=== PATIENT | female | born 1980 | race Hispanic/Latino ===

== ENCOUNTER 2018-12-10 12:18 | Emergency (ER) | payer OTHER ==
[2018-12-10] MEDS ORDERED: LIDOCAINE HCL-MPF 1% 2ML VIAL ONE (13:01)
[2018-12-10] MEDS ORDERED: CEFTRIAXONE SODIUM 1 GM ONE (13:01)
== END 2018-12-10 14:08 | disposition home or self-care (01) ==
LOC: EDH 12:18
DX: J03.90 Acute tonsillitis, unspecified (principal); L04.9 Acute lymphadenitis, unspecified; E11.9 Type 2 diabetes mellitus without complications
CPT/HCPCS: 87880; 96372; 99283; J0696; J3490

== ENCOUNTER 2023-10-15 09:48 | Emergency (ER) | payer SELFPAY ==
[~2023-10-15] VITALS: Ht 167.6 cm; Wt 89.8 kg
[2023-10-15 10:07] VITALS: BP 113/65; PULSE 100; RESP 18; O2SAT 98
[2023-10-15 10:27] LABS: BASOPHILS # (AUTO) 0.06 K/uL (0.00-0.20); BASOPHILS % (AUTO) 0.9 % (0.0-5.0); EOSINOPHILS # (AUTO) 0.16 K/uL (0.00-0.70); EOSINOPHILS % (AUTO) 2.3 % (0.0-8.0); HEMATOCRIT 35.1 % (36-48); IMMATURE GRANULOCYTE ABSOLUTE 0.03 K/uL (0-1); LYMPHOCYTES # (AUTO) 1.5 K/uL (1.0-4.8); LYMPHOCYTES % (AUTO) 20.7 % (21.0-51.0); MEAN CORPUSCULAR HEMOGLOBIN 28.8 pg (27.0-33.0); MEAN CORPUSCULAR HGB CONC 34.2 g/dL (32.0-36.0); MEAN CORPUSCULAR VOLUME 84.4 fL (79-99); MONOCYTES # (AUTO) 0.7 K/uL (0.1-1.0); MONOCYTES % (AUTO) 9.2 % (3.0-13.0); NEUTROPHILS # (AUTO) 4.7 K/uL (1.8-7.7); NEUTROPHILS % (AUTO) 66.5 % (40.0-77.0); PLATELET COUNT (AUTO) 267 K/uL (130-400); RED BLOOD CELL COUNT(AUTO) 4.16 MIL/uL (4.00-5.50); RED CELL DISTRIBUTION WIDTH 13.6 % (11.0-15.5)
[2023-10-15 10:37] LABS: CREATININE 0.7 mg/dL (0.5-1.5); POTASSIUM 3.9 mmol/L (3.5-5.1)
[2023-10-15 10:38] LABS: INR <= 0.93 (0.85-1.15); PROTHROMBIN TIME 9.8 SEC (9.6-11.6)
[2023-10-15 10:39] LABS: PARTIAL THROMBOPLASTIN TIME 25.1 SEC (26.3-35.5)
[2023-10-15 10:42] LABS: BILIRUBIN,TOTAL 0.3 mg/dL (0.2-1.0); TOTAL PROTEIN, SERUM 7.3 g/dL (6.0-8.3)
[2023-10-15] MEDS: 0.9%NACL 1000ML 1,000 ML IV ONE (11:03)
[2023-10-15] MEDS ORDERED: GABA-534 PO (11:41)
== END 2023-10-15 12:03 | disposition home or self-care (01) ==
LOC: EDH 09:48
DX: E11.40 Type 2 diabetes mellitus with diabetic neuropathy, unspecified (principal); E11.65 Type 2 diabetes mellitus with hyperglycemia; E87.1 Hypo-osmolality and hyponatremia; M79.89 Other specified soft tissue disorders; M79.604 Pain in right leg
CPT/HCPCS: 99284; 96360; 93971; 80053; 85025; 85610; 85730; 36415; J7030

== ENCOUNTER 2025-02-17 14:15 | Emergency (ER) | payer BC ==
[~2025-02-17] VITALS: Ht 162.6 cm; Wt 93.4 kg
[~2025-02-17 14:15] MED LIST: ACAR50TA5 PO; ATOR40TA69 PO; DAPA10TA PO; GABA-534 PO; INSLAN SQ; METF-446 PO
--- NOTE | 2025-02-17 14:24 | ERN ---
ED Note History of Present Illness Stated Complaint: BRUISED RIGHT 5TH FINGER WITH PAIN Chief Complaint: Finger Injury Time Seen by MD: 14:19 Dictation: PATIENT IS A 44-YEAR-OLD DIABETIC FEMALE HERE WITH COMPLAINTS OF A SELF- INFLICTED NEEDLE STICK FROM HER GLUCOSE MONITOR YESTERDAY. SHE ACCIDENTALLY POKED HERSELF ON HER DISTAL RIGHT 5TH FINGER NOW HAS SOME MILD SWELLING AND BRUISING. NO FEVER NO CHILLS NO NAUSEA VOMITING NEUROVASCULAR CMS INTACT TO FINGER. SHE DID NOT CHECK HER BLOOD SUGAR THIS MORNING. NOR DOES SHE TAKE ANYTHING PRIOR TO ARRIVAL FOR PAIN. Allergies: Coded Allergies: No Known Drug Allergies (Unverified Allergy, Unknown, 10/15/23) Home Meds Active Scripts Atorvastatin Calcium (LIPITOR) 80 Mg Tablet, 1 TAB PO HS for 30 Days, #30 TAB 0 Refills Prov:JESÚS BRENNAN NECKTIES PAINTER 09/18/24 Reported Medications Gabapentin (Gabapentin) 400 Mg Capsule, 1 CAP PO TID PRN for PAIN for 30 Days, #90 CAP 0 Refills 09/13/24 Dapagliflozin Propanediol (Farxiga) 10 Mg Tablet, 1 TAB PO DAILY for 30 Days, #30 TAB 0 Refills 09/13/24 Acarbose (Acarbose) 50 Mg Tablet, 50 MG PO DAILY, TAB 09/13/24 Metformin HCl (Metformin HCl) 1,000 Mg Tablet, 1 TAB PO BID for 30 Days, #60 TAB 0 Refills 09/13/24 Insulin Glargine,Hum.rec.anlog (Lantus) 100 Unit/Ml Inj, 50 UNITS SQ BID, ML 09/13/24 Past Medical History Past Medical History: Diabetes-Type II Surgical History: None History: Not Applicable RN Note Reviewed/Agreed w/PFSH: Yes Review of System Dictation CONSTITUTIONAL: NEGATIVE EXCEPT FOR HPI HEAD/FACE: NEGATIVE EXCEPT FOR HPI EENT: NEGATIVE EXCEPT FOR HPI RESPIRATORY: NEGATIVE EXCEPT FOR HPI GASTROINTESTINAL/ABDOMINAL: NEGATIVE EXCEPT FOR HPI GENITOURINARY: NEGATIVE EXCEPT FOR HPI MUSCULOSKELETAL: NEGATIVE EXCEPT FOR HPI INTEGUMENTARY: NEGATIVE EXCEPT FOR HPI NEEDLE STICK INJURY WITH SWELLING TO DISTAL PALMAR RIGHT 5TH FINGER NEUROLOGICAL/PSYCH: NEGATIVE EXCEPT FOR HPI HEMATOLOGIC/LYMPHATIC: NEGATIVE EXCEPT FOR HPI ALL SYSTEMS NEGATIVE, EXCEPT NOTED ABOVE. 13 POINT REVIEW OF SYSTEMS ASSESSED AND ALL NEGATIVE EXCEPT FOR ABOVE. Initial Vital Sign VS Vital Signs Date Time Temp Pulse Resp B/P (MAP) Pulse Ox O2 Delivery O2 Flow Rate FiO2 02/17/25 14:17 98.1 97 16 118/61 97 Room Air Physical Exam Dictation VITAL SIGNS REVIEWED GENERAL APPEARANCE: ALERT, ORIENTED X 3, MILD ACUTE DISTRESS, WELL DEVELOPED, NOURISHED. HEAD AND FACE: NON-TRAUMATIC. EYES: PERRL, PINK CONJUNCTIVAS, EYELID NO TRAUMA, ANTERIOR CHAMBER WITH ARCUS SENILIS. EARS: PINNAS INTACT AND NO SIGNS OF TRAUMA OR ERYTHEMA EAR CANALS CLEAR AND NO DISCHARGE TM NO ERYTHEMA NOSE: NO DISCHARGE, NO BLEEDING. OROPHARYNX: MOUTH NORMAL, TONGUE PINK, PHARYNX CLEAR,NO ERYTHEMA, TONSILS NO EXUDATES, NO ABSCESSES NOTED, MUCOUS MEMBRANE MOIST NECK: SUPPLE, NON-TENDER, NO THYROMEGALY, NO MASSES, NO JVD, NO BRUITS BREAST:DEFERRED CHEST:NO TENDERNESS, NO CREPITUS, NO PARADOXICAL MOVEMENT, NO RETRACTIONS LUNGS:CLEAR, WELL-VENTILATED, SYMMETRIC, NO RALES, NO WHEEZING, NO RHONCHI, NO STRIDOR, GOOD BREATH SOUNDS BILATERALLY HEART: REGULAR RATE, REGULAR RHYTHM, NO MURMUR, NO GALLOPS VASCULAR: NO PERIPHERAL EDEMA, ABDOMEN: SOFT, POSITIVE BOWEL SOUNDS, NONDISTENDED, NO GUARDING, NONTENDER, NO REBOUND, NO MASSES NO HEPATOMEGALY, NO SPLENOMEGALY, NO KUNZ'S SIGN, NO HERNIAS. RECTAL: DEFERRED GENITAL: DEFERRED NEUROLOGICAL: NORMAL SPEECH, MOTOR FUNCTION INTACT, SENSORY FUNCTION INTACT MUSCULOSKELETAL: NECK NONTENDER, FULL RANGE OF MOTION, BACK NONTENDER, FULL RANGE OF MOTION, EXTREMITIES: MILD SWELLING AND ECCHYMOSIS TO DISTAL PHALANX RIGHT 5TH FINGER NAIL IS INTACT NO ERYTHEMA SKIN: COLOR PINK, DRY, NO TURGOR, NO RASH, NO LACERATIONS, NO ABRASIONS, NO CONTUSIONS. LYMPHATIC: DEFERRED Results (Laboratory/Radiology) Laboratory/Radiology Laboratory Tests Test 02/17/25 14:56 White Blood Count 8.7 K/uL (4.8-10.8) Red Blood Count 4.32 MIL/uL (4.00-5.50) Hemoglobin 11.5 g/dL (12.0-16.0) L Hematocrit 35.1 % (36-48) L Mean Corpuscular Volume 81.3 fL (79-99) Mean Corpuscular Hemoglobin 26.6 pg (27.0-33.0) L Mean Corpuscular Hemoglobin Concent 32.8 g/dL (32.0-36.0) Red Cell Distribution Width 15.4 % (11.0-15.5) Platelet Count 293 K/uL (130-400) Mean Platelet Volume 10.5 fL (7.5-10.5) Immature Granulocyte % (Auto) 0.3 % (0-1) Neutrophils (%) (Auto) 63.7 % (40.0-77.0) Lymphocytes (%) (Auto) 24.4 % (21.0-51.0) Monocytes (%) (Auto) 8.8 % (3.0-13.0) Eosinophils (%) (Auto) 2.2 % (0.0-8.0) Basophils (%) (Auto) 0.6 % (0.0-5.0) Neutrophils # (Auto) 5.6 K/uL (1.8-7.7) Lymphocytes # (Auto) 2.1 K/uL (1.0-4.8) Monocytes # (Auto) 0.8 K/uL (0.1-1.0) Eosinophils # (Auto) 0.19 K/uL (0.00-0.70) Basophils # (Auto) 0.05 K/uL (0.00-0.20) Absolute Immature Granulocyte (auto 0.03 K/uL (0-1) Nucleated Red Blood Cells 0.0 % (0.0-0.19) Sodium Level 136 mmol/L (136-145) Potassium Level 3.6 mmol/L (3.5-5.1) Chloride Level 101 mmol/L (101-111) Carbon Dioxide Level 25 mmol/L (21-32) Blood Urea Nitrogen 15 mg/dL (7-18) Creatinine 0.8 mg/dL (0.5-1.0) Glomerular Filtration Rate Calc 93 mL/min (>90) Random Glucose 276 mg/dL (70-105) H Total Calcium 9.0 mg/dL (8.5-10.1) Labs Reviewed?: Yes ED Course ED Course Orders Procedure Category Date Status Time Cbc With Differential LAB 02/17/25 Complete 14:21 Basic Metabolic Panel LAB 02/17/25 Complete 14:21 Acetaminophen 500mg PHA 02/17/25 Complete Tab (Tylenol 500mg T 14:30 Cephalexin 500 Mg PHA 02/17/25 Complete Capsule (Keflex 500 Mg 14:30 Current Medications Medications (Trade) Dose Ordered Sig/Christine Route PRN Reason Start Time Stop Time Status Last Admin Dose Admin Acetaminophen (TYLenol 500MG TAB) 1,000 mg ONCE ONCE PO 02/17/25 14:30 02/17/25 14:31 DC 02/17/25 14:34 Cephalexin (Keflex 500 MG CAPS) 1,000 mg ONCE ONCE PO 02/17/25 14:30 02/17/25 14:31 DC 02/17/25 14:35 Vital Signs Date Time Temp Pulse Resp B/P (MAP) Pulse Ox O2 Delivery O2 Flow Rate FiO2 02/17/25 14:17 98.1 97 16 118/61 97 Room Air 1630/PATIENT DISCHARGED HOME WITH A UNCONTROLLED DIABETES WE WILL BE PLACED ON CEPHALEXIN TOLD TO SEE HER PRIMARY CARE DOCTOR Medical Decision Making MDM MEDICAL DISCHARGE MAKING BASED ON BASIC LABS AND PROPHYLACTIC TREATMENT FOR A NEEDLE STICK INJURY ON A DIABETIC PATIENT. NO LEUKOCYTOSIS, BLOOD SUGAR 276 PATIENT STATES SHE IS COMPLIANT WITH HER MEDS. DISCHARGED HOME WITH CEPHALEXIN AND TOLD TO SEE HER PRIMARY CARE DOCTOR FOR FOLLOW UP AND MANAGEMENT DX & DISP Disposition: Discharge Departure Impression: Primary Impression: Needle stick injury of finger of right hand Additional Impression: Uncontrolled diabetes mellitus Condition: Stable Scripts Cephalexin (Cephalexin) 500 Mg Tablet 1 TAB PO QID for 10 Days, #40 TAB 0 Refills Prov: LAURA MCKAY RUSSIAN HISTORY PROFESSOR 02/17/25 Additional Instructions: FOLLOW-UP WITH PRIMARY CARE PROVIDER IN 1 TO 2 DAYS. TAKE MEDICATIONS DIRECTED HERE IN THE EMERGENCY ROOM. OKAY TO CONTINUE HOME MEDICATIONS UNLESS OTHERWISE DISCUSSED DURING YOUR VISIT IN THE EMERGENCY ROOM TODAY. RETURN TO YOUR NEAREST EMERGENCY ROOM IF SYMPTOMS WORSEN OR IF THERE IS NO IMPROVEMENT. CALL 911 IF YOU NEED IMMEDIATE ASSISTANCE. TAKE TYLENOL OR MOTRIN [id number]-[id number] NEEDED AND IF NO CONTRAINDICATIONS ARE PRESENT. INCREASE ORAL HYDRATION. A WOUND CULTURE OR URINE CULTURE WAS ORDERED HERE IN THE EMERGENCY ROOM DEPARTMENT PLEASE FOLLOW-UP WITH PRIMARY CARE PROVIDER AND ADVISE THEM TO GET REPEAT PORTS FROM OUR FACILITY. IF YOU HAD ANY RANDY WRAP/SPLINTS THAT WERE APPLIED HERE, PLEASE DO NOT REMOVE THEM UNTIL YOU SEE YOUR PRIMARY CARE OR SPECIALTY. TAKE ANTIBIOTICS DIRECTED UNTIL GONE. FOLLOW UP WITH YOUR PRIMARY CARE DOCTOR IN THE NEXT 1-2 DAYS. Referrals: AKOSUA JOHNSON (PCP) Time of Disposition: 16:32 I have reviewed the case, and I agree with, Diagnosis and Plan LAURA MCKAY RUSSIAN HISTORY PROFESSOR Feb 17, 2025 14:24
[2025-02-17 15:04] LABS: IMMATURE GRANULOCYTE ABSOLUTE 0.03 K/uL (0-1); NUCLEATED RED BLOOD CELLS 0.0 % (0.0-0.19); PLATELET COUNT (AUTO) 293 K/uL (130-400); RED BLOOD CELL COUNT(AUTO) 4.32 MIL/uL (4.00-5.50); RED CELL DISTRIBUTION WIDTH 15.4 % (11.0-15.5); WHITE BLOOD COUNT (AUTO) 8.7 K/uL (4.8-10.8)
[2025-02-17 15:10] LABS: CREATININE 0.8 mg/dL (0.5-1.0); GLOMERULAR FILTR. RATE CALC 93.0 mL/min (>90); GLUCOSE,RANDOM 276.0 mg/dL (70-105); SODIUM SERUM 136.0 mmol/L (136-145); UREA NITROGEN, BLOOD 15.0 mg/dL (7-18)
[2025-02-17] MEDS ORDERED: CEPH500T PO (16:32)
[2025-02-17 17:01] VITALS: BP 116/64; PULSE 89; RESP 17; TEMP 97.6; O2SAT 99
== END 2025-02-17 17:02 | disposition home or self-care (01) ==
LOC: EDH 14:15
DX: S61.236A Puncture wound without foreign body of right little finger without damage to nail, initial encounter (principal); E11.65 Type 2 diabetes mellitus with hyperglycemia; Z77.21 Contact with and (suspected) exposure to potentially hazardous body fluids; Z79.4 Long term (current) use of insulin; Z79.84 Long term (current) use of oral hypoglycemic drugs; W46.0XXA Contact with hypodermic needle, initial encounter; Y93.89 Activity, other specified; Y92.89 Other specified places as the place of occurrence of the external cause; Y99.8 Other external cause status
CPT/HCPCS: 36415; 80048; 85025; 99283

== ENCOUNTER 2025-05-11 13:44 | Emergency (ER) | payer BC ==
[~2025-05-11] VITALS: Ht 162.6 cm; Wt 91.2 kg
[~2025-05-11 13:44] MED LIST changes: +CEPH500T PO
--- NOTE | 2025-05-11 13:50 | ERN ---
General Chief Complaint: Chest Wall Pain Stated Complaint: CHEST WALL PAIN Time Seen by MD: 13:46 Source: patient, family History of Present Illness Initial Comments This is a 44-year-old female coming in complaining of chest wall pain. Per patient she has been having right-sided chest pain for two days. 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 Allergies: Coded Allergies: No Known Drug Allergies (Unverified Allergy, Unknown, 10/15/23) Home Meds Active Scripts Cephalexin (Cephalexin) 500 Mg Tablet, 1 TAB PO QID for 10 Days, #40 TAB 0 Refills Prov:LAURA MCKAY AIR AND WATER TESTER 02/17/25 Atorvastatin Calcium (LIPITOR) 80 Mg Tablet, 1 TAB PO HS for 30 Days, #30 TAB 0 Refills Prov:JESÚS BRENNAN AIR AND WATER TESTER 09/18/24 Reported Medications Gabapentin (Gabapentin) 400 Mg Capsule, 1 CAP PO TID PRN for PAIN for 30 Days, #90 CAP 0 Refills 09/13/24 Dapagliflozin Propanediol (Farxiga) 10 Mg Tablet, 1 TAB PO DAILY for 30 Days, #30 TAB 0 Refills 09/13/24 Acarbose (Acarbose) 50 Mg Tablet, 50 MG PO DAILY, TAB 09/13/24 Metformin HCl (Metformin HCl) 1,000 Mg Tablet, 1 TAB PO BID for 30 Days, #60 TAB 0 Refills 09/13/24 Insulin Glargine,Hum.rec.anlog (Lantus) 100 Unit/Ml Inj, 50 UNITS SQ BID, ML 09/13/24 Past Medical History Past Medical History: Diabetes-Type II Past Surgical History: None Female( History) History: Not Applicable ROS Dictation CONSTITUTIONAL: No chills, no fever, no weakness, no diaphoresis, no malaise. HEAD/FACE: No signs of trauma. EENT: No eye pain, no blurred vision, no tearing, no double vision, no ear pain, no ear discharge, no nose pain, no nasal congestion, no throat pain, no throat swelling, no mouth pain. RESPIRATORY: No cough, no orthopnea, no SOB, no stridor, no wheezing. CARDIOVASCULAR: chest pain, no edema, no palpitations, no syncope. GASTROINTESTINAL/ABDOMINAL: No abdominal pain, no constipation, no diarrhea, no nausea, no vomiting. GENITOURINARY: No abnormal discharge, no dysuria, no frequent urination, no hematuria. No complaints of pain in the genitals. MUSCULOSKELETAL: No back pain, no gout, no joint pain, no joint swelling, no muscle pain, no muscle stiffness, no neck pain. INTEGUMENTARY: No change in color, no change in hair/nails, no dryness, no lesion, no lumps, no rash. NEUROLOGICAL/PSYCH: No anxiety, not depressed, no emotional problem, no headache, no numbness, no pre-existing deficit, no history of seizures, no tremors, no weakness. HEMATOLOGIC/LYMPHATIC: Not anemic, no history of blood clots, no apparent bleeding, no bruising, glands not swollen. All Systems Negative, Except as Noted. Physical Exam Physical Exam Dictation VITAL SIGNS: Reviewed. GENERAL APPEARANCE: Alert, oriented x3, no acute distress, obese. HEAD AND FACE: Non-traumatic. EYES: PERRL, pink conjunctivas, eyelid no trauma, anterior chamber clear. EARS: Pinnas intact and no signs of trauma or erythema. Ear canals clear and no discharge. TMs no erythema. NOSE: No discharge, no bleeding. OROPHARYNX: Mouth normal, teeth no caries, tongue pink. Pharynx clear, no erythema. Tonsils no exudates, no abscesses noted. Mucous membrane moist. NECK: Supple, non-tender, no thyromegaly, no masses, no JVD, no bruits. BREAST: Deferred. CHEST: tenderness, no crepitus, no paradoxical movement, no retractions. LUNGS: Clear, well-ventilated, symmetric, no rales, no wheezing, no rhonchi, no stridor, good breath sounds bilaterally. HEART: Regular rate, regular rhythm, no murmur, no gallops. VASCULAR: No peripheral edema. ABDOMEN: Soft, positive bowel sounds, nondistended, no guarding, nontender, no rebound, no masses no hepatomegaly, no splenomegaly, no Wang's sign, no hernias. RECTAL: Deferred. GENITAL: Deferred. NEUROLOGICAL: Normal speech, gross motor function intact, gross sensory function intact. MUSCULOSKELETAL: Neck nontender, full range of motion, back nontender, full range of motion. EXTREMITIES: Nontender, full range of motion. SKIN: Color pink, dry, no turgor, no rash, no lacerations, no abrasions, no contusions. LYMPHATICS: Deferred. Results Laboratory and Microbiology Lab and Micro Result Laboratory Tests Test 05/11/25 14:07 05/11/25 14:23 05/11/25 14:57 05/11/25 15:11 White Blood Count 9.9 K/uL (4.8-10.8) Red Blood Count 4.41 MIL/uL (4.00-5.50) Hemoglobin 12.4 g/dL (12.0-16.0) Hematocrit 37.3 % (36-48) Mean Corpuscular Volume 84.6 fL (79-99) Mean Corpuscular Hemoglobin 28.1 pg (27.0-33.0) Mean Corpuscular Hemoglobin Concent 33.2 g/dL (32.0-36.0) Red Cell Distribution Width 14.3 % (11.0-15.5) Platelet Count 285 K/uL (130-400) Mean Platelet Volume 10.1 fL (7.5-10.5) Immature Granulocyte % (Auto) 0.4 % (0-1) Neutrophils (%) (Auto) 71.1 % (40.0-77.0) Lymphocytes (%) (Auto) 18.4 % (21.0-51.0) L Monocytes (%) (Auto) 8.3 % (3.0-13.0) Eosinophils (%) (Auto) 1.3 % (0.0-8.0) Basophils (%) (Auto) 0.5 % (0.0-5.0) Neutrophils # (Auto) 7.1 K/uL (1.8-7.7) Lymphocytes # (Auto) 1.8 K/uL (1.0-4.8) Monocytes # (Auto) 0.8 K/uL (0.1-1.0) Eosinophils # (Auto) 0.13 K/uL (0.00-0.70) Basophils # (Auto) 0.05 K/uL (0.00-0.20) Absolute Immature Granulocyte (auto 0.04 K/uL (0-1) Nucleated Red Blood Cells 0.0 % (0.0-0.19) Sodium Level 131 mmol/L (136-145) L Potassium Level 4.6 mmol/L (3.5-5.1) Chloride Level 95 mmol/L (101-111) L Carbon Dioxide Level 25 mmol/L (21-32) Blood Urea Nitrogen 12 mg/dL (7-18) Creatinine 0.9 mg/dL (0.5-1.0) Glomerular Filtration Rate Calc 80 mL/min (>90) Random Glucose 482 mg/dL (70-105) *H Total Calcium 8.6 mg/dL (8.5-10.1) Troponin I High Sensitivity < 4 ng/L (4-50) L Urine Color COLORLESS (YELLOW) Urine Appearance CLEAR (CLEAR) Urine pH 5.5 (5.0-8.0) Urine Specific [place] 1.033 (1.001-1.031) Urine Protein 10 mg/dL (NEGATIVE) H Urine Glucose (UA) >=1000 mg/dL (NEGATIVE) H Urine Ketones NEGATIVE mg/dL (NEGATIVE) Urine Occult Blood NEGATIVE (NEGATIVE) Urine Nitrate NEGATIVE (NEGATIVE) Urine Bilirubin NEGATIVE mg/dL (NEGATIVE) Urine Urobilinogen 0.2 mg/dL (0.2-1.0) Urine Leukocyte Esterase NEGATIVE [place]/uL Urine RBC 2-5 /HPF (0-1) H Urine WBC 2-5 /HPF (0-1) H Urine Squamous Epithelial Cells FEW /HPF (0-2) Urine Bacteria RARE /HPF (None Seen) Urine HCG, Qualitative NEGATIVE (NEGATIVE) Blood Gas Specimen Type Arterial Arterial Blood pH 7.390 (7.350-7.450) Arterial Blood Partial Pressure CO2 37 mmHg (32-45) Arterial Blood Partial Pressure O2 95.7 mmHg (83.0-108.0) Arterial Blood HCO3 21.7 mmol/L (21.0-28.0) Arterial Blood Oxygen Saturation 97.1 % (94.0-98.0) Arterial Blood Base Excess -2.7 mmol/L (-2.0-3.0) L Hemoglobin (Blood Gas) 13.1 g/dL (12.0-16.0) Sodium (Blood Gas) 132 MMOL/L (136-145) L Bedside Potassium (Blood Gas) 4.3 MMOL/L (3.4-4.5) Bedside Chloride (Blood Gas) 97 MMOL/L (98-107) L Bedside Glucose (Blood Gas) 472 MG/DL (65-95) *H Bedside Ionized Calcium (Blood Gas) 1.19 MMOL/L (1.15-1.33) Bedside Lactic Acid (Blood Gas) 4.24 MMOL/L (0.36-0.75) *H Blood Gas Temperature 37.0 CELSIUS (35.5-37.0) Blood Gas Vent Mode RA (ROOM AIR) FiO2 21.0 % Blood Gas Specimen Comment LR, Whole Blood Ketones Quantitative 0.1 mmol/L (0.0-0.6) Test 05/11/25 15:23 05/11/25 16:21 Whole Blood Glucose 401 MG/DL (70-110) *H 321 MG/DL (70-110) H Bedside Glucose Comment Notified Nurse Labs Reviewed?: Yes EKG/XRAY/US/CT/MRI EKG Comment 05/11/2025 time 2:06 p.m. Ventricular rate 95 Sinus rhythm [place] [address] wave elevation or depression X-RAY Comment [address] [address] IMAGING REPORT Signed PATIENT: OLIVIA CHI MR#: [id number] : 1980 SEX: F AGE: 44 LOCATION: [facility] ORDER 57 STATUS: [facility] REPORT#: [id number] SERVICE 56 REASON: ORDERING PHYSICIAN: TAM KUMAR MD PROCEDURE: CXR1VW - CHEST 1VW EXAM: CR Chest, 1 View. CLINICAL HISTORY: COMPARISON: September 15 2024 FINDINGS: LUNGS: The lungs show no infiltrate or other acute finding. PLEURAL SPACES: No evidence of pleural effusion or pneumothorax. MEDIASTINUM: The cardiomediastinal silhouette is within normal limits. BONES: No aggressive appearing osseous lesion seen. IMPRESSION: No acute cardiopulmonary pathology is evident. /[place] DICTATED BY: ASYA MORENO MD DATE: 05/11/251702 ELECTRONICALLY SIGNED BY: ASYA MORENO MD DATE: 05/11/251702 MDM MDM: Differential diagnosis: chest pain, muscle strain, costochondritis, Rationale: Tests considered and ordered secondary to shared decision making include: Previous outside records reviewed: Old ER visits. Risk of complication and/or morbidity or mortality of patient management: None Medications-Per medication reconciliation Need for hospitalization: Patient does not meet criteria for hospitalization. Need for emergency major/minor surgery: No Patient is a 44-year-old female coming in to be evaluated for right-sided chest pain. On physical exam that has tenderness to palpation laboratory workup which included cardiac workup was negative for any elevated troponins. Glucose was elevated was hydrated with IV fluids given IV insulin times 10 units and glucose improved significantly. Patient was educated on proper management of diabetes mellitus. Also advise her rest on physical activity to help alleviate her right-sided shoulder discomfort. Patient will be discharged in stable condition. ED Course Orders Procedure Category Date Status Time Cbc With Differential LAB 05/11/25 Complete 13:57 Chest 1vw RAD 05/11/25 Resulted 13:57 12 Lead Ekg Tracing- EKG 05/11/25 Logged Technical 13:57 ,Urine Test LAB 05/11/25 Complete 13:57 Troponin I High LAB 05/11/25 Complete Sensitivity 13:57 Urinalysis Profile LAB 05/11/25 Complete 13:57 Basic Metabolic Panel LAB 05/11/25 Complete 13:57 0.9%Nacl 1000ml (Ns PHA 05/11/25 Complete 1000ml) 15:00 Arterial Blood Gas + RT 05/11/25 Transmitted 14:33 Insulin Regular, PHA 05/11/25 Complete Human 3ml (Humulin R 15:00 Ketone Blood LAB 05/11/25 Complete Quantitative 14:51 Arterial Blood Gas LAB 05/11/25 Complete Arterial + 14:57 Insulin Regular, PHA 05/11/25 Complete Human 3ml (Humulin R 16:00 Bedside Glucose CPOE 05/11/25 Transmitted Fingerstick 16:43 Current Medications Medications (Trade) Dose Ordered Sig/Christine Route PRN Reason Start Time Stop Time Status Last Admin Dose Admin Insulin Human Regular (humuLIN R 100 UNIT/ML 3ML) 5 unit ONCE ONCE IV 05/11/25 15:00 05/11/25 15:01 DC 05/11/25 15:28 Insulin Human Regular (humuLIN R 100 UNIT/ML 3ML) 5 unit ONCE ONCE IV 05/11/25 16:00 10/7/25 16:01 DC 05/11/25 16:40 Sodium Chloride 1,000 ml @ 0 mls/hr ONCE ONCE IV 05/11/25 15:00 05/11/25 15:01 DC Vital Signs Date Time Temp Pulse Resp B/P (MAP) Pulse Ox O2 Delivery O2 Flow Rate FiO2 05/11/25 15:41 99 20 121/66 96 Room Air* 0 21 05/11/25 14:13 98.6 99 20 120/64 97 Room Air* 0 21 05/11/25 13:46 98.6 99 20 120/64 97 Room Air 0 DX & DISP Disposition: Discharge Departure Impression: Primary Impression: Uncontrolled diabetes mellitus Additional Impressions: Right-sided chest wall pain, Muscle strain Condition: Stable Additional Instructions: You have been reviewed in the emergency department at [facility] after presenting with chest pain. After considering your history, your risk factors, your EKG and your blood test troponins, have been found to be at very low risk less than (1 in 100) of having a major adverse cardiac event (like heart attack) in the near future. In the " low risk" group, the risks of doing further tests and treatment as the inpatient outweighs the benefits. In many p atients in the low risk group for the test of any sort or unnecessary, however he should discuss this further with his general practitioner who will understand the medical and personal backgrounds better. Because we have never declared you" no risk" we would suggest. 1 returning for medical review if you have further episodes of chest pain/arm pain or other concerning symptoms like dizziness, collapse, palpitations or shortness of breath. 2. Following up with your local doctor who will consider the need for further testing and will also ensure that any modifiable risk factors you may have for heart disease are optimally managed. Patient will be discharged in stable condition at the moment discharge patient states , no chest pain Referrals: AKOSUA JOHNSON (PCP) Time of Disposition: 17:01 TAM KUMAR MD May 11, 2025 13:50
[2025-05-11 14:16] LABS: IMMATURE GRANULOCYTE ABSOLUTE 0.04 K/uL (0-1); NUCLEATED RED BLOOD CELLS 0.0 % (0.0-0.19); PLATELET COUNT (AUTO) 285 K/uL (130-400); RED BLOOD CELL COUNT(AUTO) 4.41 MIL/uL (4.00-5.50); RED CELL DISTRIBUTION WIDTH 14.3 % (11.0-15.5); WHITE BLOOD COUNT (AUTO) 9.9 K/uL (4.8-10.8)
[2025-05-11 14:27] LABS: CREATININE 0.9 mg/dL (0.5-1.0); GLOMERULAR FILTR. RATE CALC 80.0 mL/min (>90); SODIUM SERUM 131.0 mmol/L (136-145); UREA NITROGEN, BLOOD 12.0 mg/dL (7-18)
[2025-05-11 14:30] LABS: GLUCOSE,RANDOM 482.0 mg/dL (70-105)
[2025-05-11 14:54] LABS: HCG,QUALITATIVE URINE NEGATIVE (NEGATIVE)
[2025-05-11 14:58] LABS: ABG BASE EXCESS -2.7 mmol/L (-2.0-3.0); ABG HCO3 21.7 mmol/L (21.0-28.0); ABG OXYGEN SATURATION 97.1 % (94.0-98.0); ABG PCO2 37 mmHg (32-45); ABG PH 7.390 (7.350-7.450); CARBON MONOXIDE 0.9 % (0.5-1.5); PO2, ARTERIAL BG 95.7 mmHg (83.0-108.0); TEMPERATURE, CELSIUS BG 37.0 CELSIUS (35.5-37.0); VENT MODE, BG RA (ROOM AIR)
[2025-05-11] MEDS: 0.9%NACL 1000ML 1,000 ML IV ONE (15:00)
[2025-05-11 15:01] LABS: APPEARANCE,URINE CLEAR (CLEAR); GLUCOSE, URINE (UA) >=1000 mg/dL (NEGATIVE); LEUKOCYTE ESTERASE ,URINE NEGATIVE Leu/uL (NEGATIVE); NITRATE,URINE NEGATIVE (NEGATIVE); OCCULT BLOOD,URINE NEGATIVE (NEGATIVE)
[2025-05-11 15:02] LABS: ADD UA MICROSCOPIC YES
[2025-05-11 15:03] LABS: SQUAMOUS EPITHELIAL CELL,UR FEW /HPF (0-2)
--- NOTE | 2025-05-11 16:04 | HMCIMG ---
EXAM: CR Chest, 1 View. CLINICAL HISTORY: cp COMPARISON: September 15 2024 FINDINGS: LUNGS: The lungs show no infiltrate or other acute finding. PLEURAL SPACES: No evidence of pleural effusion or pneumothorax. MEDIASTINUM: The cardiomediastinal silhouette is within normal limits. BONES: No aggressive appearing osseous lesion seen. IMPRESSION: No acute cardiopulmonary pathology is evident. /[place]
[2025-05-11] MEDS: ORPHENADRINE 60MG/2ML IM ONE (17:12)
--- NOTE | 2025-05-11 17:16 | EKG ---
[facility] Test Date: 2025-05-11 Test Time: 14:06:29 Pat Name: OLIVIA CHI Department: [facility] Room: Gender: F Occupational Rehabilitation Aide: 9920 : 1980 Requested By: TAM KUMAR Order Number: [id number] Reading MD: Olu De Leon Measurements Intervals Cornelius Rate: 95 P: 25 CT: 143 QRS: -1 QRSD: 85 T: 9 QT: 370 QTc: 465 Interpretive Statements Sinus rhythm No previous ECG available for comparison Electronically Signed On 05-13-2025 06:51:37 CDT by Olu De Leon Please click the below link to view image of tracing.
[2025-05-11 17:33] VITALS: BP 105/64; PULSE 90; RESP 12; TEMP 98.2; O2SAT 99
== END 2025-05-11 17:34 | disposition home or self-care (01) ==
LOC: EDH 13:44
DX: S29.011A Strain of muscle and tendon of front wall of thorax, initial encounter (principal); E11.65 Type 2 diabetes mellitus with hyperglycemia; Z79.4 Long term (current) use of insulin; Z79.84 Long term (current) use of oral hypoglycemic drugs; X58.XXXA Exposure to other specified factors, initial encounter; Y93.89 Activity, other specified; Y92.89 Other specified places as the place of occurrence of the external cause; Y99.8 Other external cause status
CPT/HCPCS: 99284; 96374; 96361; 71045; 82947; 84484; 80048; 82803; 85025; 83605; 82010; 81001; 81025; 36415; 96376; 93005; 36600; 96372; 82948 ×3; 82435; 84132; 84295; 85018; J1815 ×2; J1885; J7030; J2360

== ENCOUNTER 2025-06-10 15:05 | Emergency (ER) | payer BC ==
[~2025-06-10] VITALS: Ht 162.6 cm; Wt 91.2 kg
[2025-06-10] MEDS ORDERED: KETO10TA2 PO (18:32)
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
[2025-06-10 18:37] VITALS: BP 126/63; PULSE 94; RESP 17; TEMP 98.2; O2SAT 99
--- NOTE | 2025-06-10 19:15 | HMCIMG ---
EXAM: CR Chest, 1 View. CLINICAL HISTORY: cp COMPARISON: None provided. FINDINGS: LUNGS: There is no mass, infiltrate, or acute pulmonary abnormality. PLEURAL SPACES: No pleural effusion or pneumothorax. MEDIASTINUM: The cardiomediastinal silhouette is within normal limits. BONES: No aggressive appearing osseous lesion seen. IMPRESSION: No acute cardiopulmonary pathology is evident. /[place]
== END 2025-06-10 19:15 | disposition home or self-care (01) ==
LOC: EDH 15:05
DX: S16.1XXA Strain of muscle, fascia and tendon at neck level, initial encounter (principal); M25.511 Pain in right shoulder; E11.9 Type 2 diabetes mellitus without complications; E78.00 Pure hypercholesterolemia, unspecified; Z79.84 Long term (current) use of oral hypoglycemic drugs; Z79.4 Long term (current) use of insulin; Z79.899 Other long term (current) drug therapy; V89.2XXA Person injured in unspecified motor-vehicle accident, traffic, initial encounter; Y93.89 Activity, other specified; Y92.89 Other specified places as the place of occurrence of the external cause; Y99.8 Other external cause status
CPT/HCPCS: 71045; 99283